=== PATIENT | female | born 1960 | race Two or more races ===

== ENCOUNTER 2020-02-22 10:23 | Emergency (ER) | payer MEDICAID, OTHER ==
[~2020-02-22] VITALS: Ht 167.6 cm; Wt 81.6 kg
[2020-02-22 10:40] VITALS: BP 168/92
[2020-02-22] MEDS ORDERED: LIDOCAINE 1% HCL (LOCAL ANESTH.) INJ 20ML MDV IJ ONE (10:45)
[2020-02-22] MEDS ORDERED: TETANUS-DIPTH-ACEL PERTUSSIS 0.5ML SYR Tdap IM ONE (10:45)
[2020-02-22] MEDS ORDERED: ACETAMINOPHEN 500 MG TAB PO ONE (10:45)
== END 2020-02-22 12:49 | disposition home or self-care (01) ==
LOC: ER 10:23
DX: S51.812A Laceration without foreign body of left forearm, initial encounter (principal); W54.0XXA Bitten by dog, initial encounter; Y93.89 Activity, other specified; Y92.89 Other specified places as the place of occurrence of the external cause; Y99.8 Other external cause status
CPT/HCPCS: 12001; 73090; 90471; 90715; 99283; J2001